=== PATIENT | female | born 1995 | race Caucasian/White ===

== ENCOUNTER 2019-08-28 21:48 | Emergency (ER) | payer MEDICAID, OTHER ==
[~2019-08-28] VITALS: Ht 322.6 cm; Wt 59.1 kg
[~2019-08-28 21:48] MED LIST: CYCL-1 PO; DIPH-423 PO; IBUP-1574 PO
[2019-08-28] MEDS ORDERED: AMOX500C2 PO (22:30)
[2019-08-28] MEDS ORDERED: ACET-1025 PO (22:30)
[2019-08-28] MEDS ORDERED: ondansetron 4mg rapidly disintigrating tab PO ONE (22:30)
[2019-08-28] MEDS ORDERED: acetaminophen 325mg tablet PO ONE (22:30)
[2019-08-28] MEDS ORDERED: amoxicillin 250mg capsule PO ONE (22:30)
[2019-08-28 22:37] VITALS: BP 130/95
== END 2019-08-28 22:38 | disposition home or self-care (01) ==
LOC: ER 21:49
DX: K08.89 Other specified disorders of teeth and supporting structures (principal); K02.9 Dental caries, unspecified; Z72.89 Other problems related to lifestyle; Z79.899 Other long term (current) drug therapy
CPT/HCPCS: 99284

== ENCOUNTER 2020-03-29 12:46 | Emergency (ER) | payer MEDICAID ==
[~2020-03-29] VITALS: Ht 170.2 cm; Wt 67.3 kg
[2020-03-29 13:53] LABS: BASOPHILS # (AUTO) 0.1 X10'3 (0-0.2); BASOPHILS % (AUTO) 0.5 % (0-1); EOSINOPHILS # (AUTO) 0.1 X10'3 (0-0.9); EOSINOPHILS % (AUTO) 0.4 % (0-6); HEMATOCRIT 40.1 % (35.0-45.0); HEMOGLOBIN 13.7 g/dl (12.0-16.0); LYMPHOCYTES # (AUTO) 2.5 X10'3 (1.1-4.8); LYMPHOCYTES % (AUTO) 17.1 % (21-51); MEAN CORPUSCULAR HEMOGLOBIN 33.6 PG (27.0-31.0); MEAN CORPUSCULAR HGB CONC 34.1 g/dL (33.0-36.5); MEAN CORPUSCULAR VOLUME 98.5 FL (78-98); MEAN PLATELET VOLUME 7.1 FL (7.4-10.4); MONOCYTES % (AUTO) 6.5 % (2-12); NEUTROPHILS % (AUTO) 75.5 % (42-75); PLATELET COUNT 306 X10'3 (140-440); RED BLOOD COUNT 4.07 X10'6 (4.20-5.60); RED CELL DISTRIBUTION WIDTH 13.4 % (11.5-14.5); WHITE BLOOD COUNT 14.6 X10'3 (4.5-11.0)
[2020-03-29 14:06] LABS: ALANINE AMINOTRANSFERASE 17 U/L (12-78); ALBUMIN 3.9 G/DL (3.4-5.0); ALBUMIN/GLOBULIN RATIO 1.2 (1.1-1.5); ALKALINE PHOSPHATASE 65 IU/L (46-116); ANION GAP 9 (8-16); ASPARTATE AMINO TRANSFERASE 9 U/L (10-37); BILIRUBIN,TOTAL 0.3 MG/DL (0.1-1.0); BLOOD UREA NITROGEN 11 MG/DL (7-18); BUN/CREATININE RATIO 18.3 (6.6-38.0); CALCIUM 8.8 MG/DL (8.5-10.1); CHLORIDE 104 MMOL/L (99-107); GLUCOSE 90 MG/DL (70-104); POTASSIUM 4.2 MMOL/L (3.5-5.1); SODIUM 138 MMOL/L (135-145); TOTAL CARBON DIOXIDE 25.2 MMOL/L (24-32); TOTAL PROTEIN 7.2 G/DL (6.4-8.2); eGFR > 90 ML/MIN
[2020-03-29 14:28] LABS: BETA HCG,QUANTITATIVE 21950 mIU/ml
--- NOTE | 2020-03-29 14:34 | NUR ---
ULTRASOUND AT BEDSIDE.
[2020-03-29] MEDS ORDERED: morphine 4 MG/ML inj SYRINge IV ONE (14:40)
[2020-03-29 15:21] VITALS: BP 117/71
== END 2020-03-29 15:13 | disposition home or self-care (01) ==
LOC: ER 12:46
DX: O26.30 Retained intrauterine contraceptive device in pregnancy, unspecified trimester (principal); R10.84 Generalized abdominal pain; R10.2 Pelvic and perineal pain; F17.200 Nicotine dependence, unspecified, uncomplicated; Z3A.00 Weeks of gestation of pregnancy not specified; Z72.89 Other problems related to lifestyle; Z79.899 Other long term (current) drug therapy
CPT/HCPCS: 36415; 76801; 80053; 84702; 85025; 86900; 86901; 93976; 99284